=== PATIENT | female | born 1960 | race Caucasian/White ===

== ENCOUNTER → 2016-09-13 | Outpatient (CLI) | payer OTHER ==
--- NOTE | 2016-09-13 19:27 | MA ---
Screening Digital Mammogram with iCAD Analysis Clinical Indications: 56-year-old female who is currently taking hormone replacement therapy. The pat ient has had saline augmentation mammoplasties present for 11 years. Her family history is notable fo r a paternal aunt with breast cancer at age 32. The patient presents today for routine annual screeni ng evaluation. Technique: Standard cephalocaudal projections are obtained with conventional and Ishaan implant displ aced images. Digital breast tomosynthesis was performed in the MLO projection with reconstruction at 1.0 mm slice thickness and composite MLO views reconstructed. This examination is processed by the [employer] computer aided detection system. Comparison: Unilateral right mammography dated April 18, 2015, and bilateral mammography dated March 30, 2015, January 07, 2014, at August 26, 2012, and October 10, 2010. Breast Density: Type C: Heterogeneously dense. Findings: CAD was reviewed. Again noted are bilateral breast implants, which are stable in configurat ion. There are no new masses, suspicious calcifications, or secondary signs of malignancy identified. There has been partial involution of a previously proven cyst seen in the 12 o'clock position of the right breast on an ultrasound of April 18, 2015. Impression: Benign mammography. BI-RADS 2. Recommendation: Routine mammographic screening in one year, as long as physical examination is negati ve in this patient with heterogeneously dense breast parenchyma. [facility] will send a result letter to the patient. Negative mammography should not preclude additional workup of a clinically suspicious finding. The patient's information is entered into a reminder system with a target due date for her next mammo gram.
== END ==
LOC: FIMAGING 10:29
PROVIDERS: ATTEND Radiology Diagnostic Radiology
DX: Z12.31 Encounter for screening mammogram for malignant neoplasm of breast (principal); Z79.890 Hormone replacement therapy; Z80.3 Family history of malignant neoplasm of breast
CPT/HCPCS: G0202